=== PATIENT | male | born 1930 | race Caucasian/White ===

== ENCOUNTER 2017-12-02 18:38 | Emergency (ER) | payer OTHER ==
[2017-12-02 19:08] VITALS: BMI 27.3
--- NOTE | 2017-12-02 19:31 | PDOC ---
History of Present Illness - General History Source: Patient Exam Limitations: No Limitations - History of Present Illness Initial Comments: 12/02/17 21:11 The patient is an 87 year old male with hypertension, hyperlipidemia, and COPD who arrives to the ED secondary to mechanical fall this evening. As per daughter , the patient was helping her garden when he tripped while carrying a chris pot, breaking it and hitting his head on one of the its shards. In the ED he complains of forehead pain where he was struck as well as left knee pain. He denies any LOC or focal neurological deficits. He denies any weakness, palpitations, SOB, or CP prior to the fall. Denies any recent fevers or chills. He reports taking baby aspirin daily and reports he is unsure of when his last tetanus booster was. <Dixie Groves - Last Filed: 12/02/17 21:46> <Deja Kan - Last Filed: 12/02/17 21:53> - General Chief Complaint: Head/Neck problem Stated Complaint: INJURTY TO HEAD Time Seen by Provider: 12/02/17 19:28 Past History <Dixie Groves - Last Filed: 12/02/17 21:46> - Past Medical History COPD: Yes (MILD EMPHYSEMA) HTN: Yes Hypercholesterolemia: Yes - Surgical History Abdominal Surgery: Yes Cholecystectomy: Yes - Suicide/Smoking/Psychosocial Hx Smoking History: Never smoked Have you smoked in the past 12 months: No Information on smoking cessation initiated: No Hx Alcohol Use: No Drug/Substance Use Hx: No Substance Use Type: None <Deja Kan - Last Filed: 12/02/17 21:53> - Past Medical History Allergies/Adverse Reactions: Allergies Allergy/AdvReac Type Severity Reaction Status Date / Time No Known Allergies Allergy Verified 08/06/14 08:55 Home Medications: Ambulatory Orders Aspirin [ASA -] 81 mg PO DAILY 08/06/14 Valsartan [Diovan] 160 mg PO DAILY 08/06/14 Atorvastatin Ca [Lipitor] 20 mg PO HS 12/02/17 Tamsulosin HCl 0.4 mg PO DAILY 12/02/17 Review of Systems - Review of Systems Able to Perform ROS?: Yes Comments:: 12/02/17 21:11 CONSTITUTIONAL: Absent: fever, chills, diaphoresis, generalized weakness, malaise, loss of appetite HEENT: (+) forehead pain Absent: rhinorrhea, nasal congestion, throat pain, throat swelling, difficulty swallowing, mouth swelling, ear pain, eye pain, visual Changes CARDIOVASCULAR: Absent: chest pain, syncope, palpitations, irregular heart rate, lightheadedness , peripheral edema RESPIRATORY: Absent: cough, shortness of breath, dyspnea with exertion, orthopnea, wheezing, stridor, hemoptysis GASTROINTESTINAL: Absent: abdominal pain, abdominal distension, nausea, vomiting, diarrhea, constipation, melena, hematochezia GENITOURINARY: Absent: dysuria, frequency, urgency, hesitancy, hematuria, flank pain, genital pain MUSCULOSKELETAL: (+) left leg pain SKIN: Absent: rash, itching, pallor HEMATOLOGIC/IMMUNOLOGIC: Absent: easy bleeding, easy bruising, lymphadenopathy, frequent infections ENDOCRINE: Absent: unexplained weight gain, unexplained weight loss, heat intolerance, cold intolerance NEUROLOGIC: Absent: headache, focal weakness or paresthesias, dizziness, unsteady gait, seizure, mental status changes, bladder or bowel incontinence PSYCHIATRIC: Absent: anxiety, depression, suicidal or homicidal ideation, hallucinations. All Other Systems: Reviewed and Negative <Dixie Groves - Last Filed: 12/02/17 21:46> *Physical Exam - Vital Signs Last Vital Signs Temp Pulse Resp BP Pulse Ox 97.8 F 103 H 18 139/64 100 12/02/17 18:56 12/02/17 18:56 12/02/17 18:56 12/02/17 18:56 12/02/17 18:56 - Physical Exam Comments: 12/02/17 21:12 GENERAL: Well developed, well nourished. Awake and alert.. HEENT: 5 cm jagged, Full thickness forehead laceration. PERRLA, EOMI. No conjunctival pallor. Sclera are non-icteric. Moist mucous membranes. Oropharynx is clear. NECK: Supple. Full ROM. No JVD. Carotid pulses 2+ and symmetric, without bruits. No thyromegaly. No lymphadenopathy. CARDIOVASCULAR: Regular rate and rhythm. No murmurs, rubs, or gallops. Distal pulses are 2+ and symmetric. PULMONARY: No evidence of respiratory distress. Lungs clear to auscultation bilaterally. No wheezing, rales or rhonchi. ABDOMINAL: Soft. Non-tender. Non-distended. No rebound or guarding. No organomegaly. Normoactive bowel sounds. MUSCULOSKELETAL Normal range of motion at all joints. No bony deformities or tenderness. No CVA tenderness. EXTREMITIES: No cyanosis. No clubbing. No edema. No calf tenderness. SKIN: Warm and dry. Normal capillary refill. No rashes. No jaundice. NEUROLOGICAL: Alert, awake, appropriate. Cranial nerves 2-12 intact. No motor deficits in the in face, upper extremities and lower extremities.Normal speech. PSYCHIATRIC: Cooperative. Good eye contact. Appropriate mood and affect. <Dixie Groves - Last Filed: 12/02/17 21:46> - Vital Signs Last Vital Signs Temp Pulse Resp BP Pulse Ox 97.8 F 103 H 18 139/64 100 12/02/17 18:56 12/02/17 18:56 12/02/17 18:56 12/02/17 18:56 12/02/17 18:56 <Deja Kan - Last Filed: 12/02/17 21:53> ED Treatment Course - RADIOLOGY Radiograph Interpretation: 12/02/17 21:13 EXAM: CT HEAD WITHOUT IV CONTRAST TECHNIQUE: Axial images from the skull base to the vertex. Bone and soft tissue windows were reviewed. Contrast: None REASON FOR EXAM: Status post fall COMPARISON: None FINDINGS: Diffuse cerebral atrophy with preservation of the nash-white differentiation.There is no acute intracranial hemorrhage, mass effect or midline shift. No abnormal intra-axial or extra-axial fluid collection is seen. Mild chronic microvascular ischemic changes involving the supratentorial periventricular deep white matter. The ventricles and basilar cisterns are maintained. Small scalp hematoma overlying the left frontal bone without underlying skull fracture. The imaged paranasal sinuses and mastoid air cells : Unremarkable. MPRESSION: Small scalp hematoma overlying the left frontal bone without underlying skull fracture or acute intracranial abnormality. - Medications Given in the ED: ED Medications Discontinued Medications Generic Name Dose Route Start Last Admin Trade Name Freq PRN Reason Stop Dose Admin Diphtheria/Tetanus/Acell Pertussis 0.5 ml 12/02/17 19:32 12/02/17 20:18 Boostrix - IM 12/02/17 19:33 0.5 ml .ONCE ONE Administration <Dixie Groves - Last Filed: 12/02/17 21:46> Medical Decision Making - Medical Decision Making 12/02/17 21:51 Laceration Was closed by Abiola Kan ,nurse practitioner, and she wrote a progress note pt is alert and ambulating in the ER -he denies any dizziness, or extremity pain imp :head injury,laceration,facial abrasion plan d/c home with s/r in 5-7 days <Deja Kan - Last Filed: 12/02/17 21:53> *DC/Admit/Observation/Transfer - Attestations Scribe Attestion: 12/02/17 21:14 Documentation prepared by Dixie Groves, acting as medical record retrieval specialist for Deja Kan MD. <Dixie Groves - Last Filed: 12/02/17 21:46> <Deja Kan - Last Filed: 12/02/17 21:53> Diagnosis at time of Disposition: Laceration Closed head injury Qualifiers: Encounter type: initial encounter Qualified Code(s): S09.90XA - Unspecified injury of head, initial encounter Nasal abrasion Qualifiers: Encounter type: initial encounter Qualified Code(s): S00.31XA - Abrasion of nose, initial encounter - Discharge Dispostion Disposition: HOME Condition at time of disposition: Stable - Referrals Referrals: Dom Dominguez MD [Primary Care Provider] - - Patient Instructions Printed Discharge Instructions: DI for Laceration Repair -- Complex Suture, DI for Closed Head Injury Additional Instructions: please have your doctor remove the sutures in 5-7 days please leave carmelo laceration clean and dry for the first 24 hours apply bacitracin after the first day
[2017-12-02] MEDS ORDERED: DIPHTH,PERTUSS(ACELL),TET 0.5 ML DISP.SYRIN IM ONE (19:32)
[2017-12-02 22:17] VITALS: BP 125/87; PULSE 79; TEMP 98.2
== END 2017-12-02 22:16 | disposition home or self-care (01) ==
LOC: JER 18:38
PROC: 0JQ10ZZ Repair Face Subcutaneous Tissue and Fascia, Open Approach (ICD-10-PCS; principal; 2017-12-02)
PROC: 3E0234Z Introduction of Serum, Toxoid and Vaccine into Muscle, Percutaneous Approach (ICD-10-PCS; 2017-12-02)
DX: S01.81XA Laceration without foreign body of other part of head, initial encounter (principal); W01.118A Fall on same level from slipping, tripping and stumbling with subsequent striking against other sharp object, initial encounter; Y93.H2 Activity, gardening and landscaping; Y92.017 Garden or yard in single-family (private) house as the place of occurrence of the external cause; Y99.8 Other external cause status; S00.83XA Contusion of other part of head, initial encounter; S00.31XA Abrasion of nose, initial encounter; I10 Essential (primary) hypertension; E78.5 Hyperlipidemia, unspecified; J43.8 Other emphysema
CPT/HCPCS: 12013; 70450-TC; 72125-TC; 90471; 90715; 99282-25